=== PATIENT | male | born 1990 | race Caucasian/White ===

== ENCOUNTER 2024-06-23 19:48 | Emergency (ER) | payer OTHER ==
[~2024-06-23] VITALS: Ht 185.4 cm; Wt 114.0 kg
[2024-06-23] MEDS ORDERED: ALBUTEROL SULFAT8 MG PO (19:59)
[2024-06-23] MEDS ORDERED: ALVESCO6.1 GM INH (19:59)
[2024-06-23] MEDS ORDERED: MELATONIN1 MG PO (20:00)
[2024-06-23] MEDS ORDERED: ACETAMINOPHEN 500 MG TAB PO ONE (20:15)
[2024-06-23 20:47] VITALS: BP 142/77
== END 2024-06-23 20:47 | disposition home or self-care (01) ==
LOC: ED 19:48
DX: S93.401A Sprain of unspecified ligament of right ankle, initial encounter (principal); J45.909 Unspecified asthma, uncomplicated; F17.200 Nicotine dependence, unspecified, uncomplicated; Z79.899 Other long term (current) drug therapy; Y04.2XXA Assault by strike against or bumped into by another person, initial encounter
CPT/HCPCS: 73610; 99283; A9270